=== PATIENT | male | born 1985 | race Caucasian/White ===

== ENCOUNTER 2023-12-08 18:34 | Emergency (ER) | payer BC, OTHER ==
[~2023-12-08] VITALS: Ht 180.3 cm; Wt 128.7 kg
[~2023-12-08 18:34] MED LIST: NORCO 7.5-3251 EACH PO
[2023-12-08] MEDS ORDERED: DIPHTH,PERTUSS(ACELL),TET VAC 0.5 ML SYRINGE IM ONE (19:15)
[2023-12-08] MEDS ORDERED: TRIAMCINOLONE A15 G3 TOP (19:16)
[2023-12-08 19:28] VITALS: BP 117/73
== END 2023-12-08 19:28 | disposition home or self-care (01) ==
LOC: ED 18:34
DX: S61.200A Unspecified open wound of right index finger without damage to nail, initial encounter (principal); W45.8XXA Other foreign body or object entering through skin, initial encounter
CPT/HCPCS: 99282